=== PATIENT | female | born 1940 | race Caucasian/White ===

== ENCOUNTER 2017-09-22 09:51 | Emergency (ER) | payer OTHER ==
[~2017-09-22] VITALS: Ht 169.2 cm; Wt 63.4 kg
[~2017-09-22 09:51] MED LIST: ASPERCREME76.5 GM TP; ASPIR-LOW81 MG PO; DAILY VITE1 EAC1 PO; DECADRON2 MG PO; FLONASE16 G1 BOTH NARES; FLORASTOR250 MG PO; GABAPENTIN300 MG PO; HYZAAR 100-21 TABLET PO; KLOR-CON M2020 MEQ PO; LEVAQUIN750 MG PO; MILK OF MAGNESI10 ML PO; MOTRIN800 MG PO; NEURONTIN300 MG PO; PANTOPRAZOLE SO40 MG PO; PROVENTIL HFA6.7 GM IH; SENNA PLUS TAB1 EACH PO; TOPROL XL100 MG PO; TYLENOL REGULA325 MG PO; VITAMIN D31000 UNI2 PO
[2017-09-22] MEDS ORDERED: CELEXA10 MG PO (10:42)
[2017-09-22] MEDS ORDERED: COMPAZINE10 MG PO (10:43)
[2017-09-22] MEDS ORDERED: ROXICODONE30 MG PO (10:44)
[2017-09-22] MEDS ORDERED: K-DUR20 MEQ PO (10:45)
[2017-09-22] MEDS ORDERED: MS CONTIN,ORAMO30 MG PO (10:46)
[2017-09-22] MEDS ORDERED: HYDROCHLOROTHIA25 MG PO (10:47)
[2017-09-22 12:07] LABS: ADD MIUA? NO; BILIRUBIN NEGATIVE; BLOOD NEGATIVE; COLOR YELLOW ((YELLOW)); GLUCOSE (STRIP) NEGATIVE; KETONES NEGATIVE; LEUKOCYTES NEGATIVE; NITRITE NEGATIVE; PROTEIN (STRIP) NEGATIVE; SPECIFIC GRAVITY 1.011 (1.000-1.030); UCUL ADDED? NO; UROBILINOGEN 0.2 MG/DL (0.2-1.0)
[2017-09-22 15:29] VITALS: BP 144/63
== END 2017-09-22 15:32 | disposition home or self-care (01) ==
LOC: EME → EDBD 09:51 → EME 15:32
PROVIDERS: Emergency Medicine
DX: C79.51 Secondary malignant neoplasm of bone (principal); G95.20 Unspecified cord compression; Z85.118 Personal history of other malignant neoplasm of bronchus and lung; J44.9 Chronic obstructive pulmonary disease, unspecified; I10 Essential (primary) hypertension; Z87.891 Personal history of nicotine dependence; Z88.5 Allergy status to narcotic agent; Z88.8 Allergy status to other drugs, medicaments and biological substances
CPT/HCPCS: 80048; 81003; 85027; 87502; J8540; Q0164